=== PATIENT | female | born 1940 | race Caucasian/White ===

== ENCOUNTER 2018-01-30 21:44 | Emergency (ER) | payer MEDICARE ==
[~2018-01-30] VITALS: Ht 162.6 cm; Wt 77.0 kg
[2018-01-30 22:05] VITALS: PULSE 70; RESP 18; TEMP 98.7; O2SAT 99
[2018-01-30 22:11] VITALS: BP 193/91
[2018-01-30] MEDS ORDERED: SODIUM CHLORIDE 0.9% FLUSH 10 ML FLUSH IV FLUSH PRN (22:30)
[2018-01-30] MEDS ORDERED: MORPHINE SULFATE 4 MG/ML INJ IV PUSH ONE (22:30)
[2018-01-30] MEDS ORDERED: ONDANSETRON HCL 4 MG/2 ML VIAL IVP ONE (22:30)
[2018-01-30 22:49] VITALS: O2SAT 97
[2018-01-30] MEDS ORDERED: FURO80TA PO (23:00)
[2018-01-30] MEDS ORDERED: ATEN100T PO (23:00)
[2018-01-30] MEDS ORDERED: DIPH25CA PO (23:00)
[2018-01-30] MEDS ORDERED: VALS1TAB65 PO (23:00)
[2018-01-30] MEDS ORDERED: ATOR40TA16 PO (23:00)
[2018-01-30] MEDS ORDERED: IBUP-1129 PO (23:00)
[2018-01-30] MEDS ORDERED: OMEG100046 (23:00)
[2018-01-30] MEDS ORDERED: CRANCAP2 PO (23:00)
[2018-01-30] MEDS ORDERED: APIX5TAB PO (23:00)
[2018-01-30] MEDS ORDERED: AMLO2.5T PO (23:00)
[2018-01-30] MEDS ORDERED: CALC250T PO (23:00)
[2018-01-30 23:21] LABS: AUTOMATED NEUTROPHIL # 11.9 TH/MM3 (1.8-7.7); BASOPHIL % 0.3 % (0.0-2.0); EOSINOPHIL # 0.1 TH/MM3 (0-0.4); EOSINOPHIL % 0.6 % (0.0-4.0); HEMATOCRIT 41.2 % (35.0-46.0); HEMOGLOBIN 13.9 GM/DL (11.6-15.3); LYMPH % 10.1 % (9.0-44.0); LYMPHOCYTE # 1.4 TH/MM3 (1.0-4.8); MEAN CELL VOLUME 88.8 FL (80.0-100.0); MEAN CORPUSCULAR HEMOGLOBIN 29.9 PG (27.0-34.0); MEAN CORPUSCULAR HGB CONC 33.6 % (32.0-36.0); MEAN PLATELET VOLUME 8.5 FL (7.0-11.0); MONO % 5.2 % (0.0-8.0); MONOCYTE # 0.7 TH/MM3 (0-0.9); NEUT % 83.8 % (16.0-70.0); PLATELET COUNT 232 TH/MM3 (150-450); RED BLOOD COUNT 4.64 MIL/MM3 (4.00-5.30); WHITE BLOOD COUNT 14.2 TH/MM3 (4.0-11.0)
[2018-01-30 23:30] LABS: BACTERIA, URINE MOD /hpf; BILIRUBIN, URINE NEG (NEG); BLOOD, URINE LARGE (NEG); GLUCOSE,URINE NEG (NEG); KETONE, URINE NEG (NEG); MUCUS URINE FEW /lpf (OCC); NITRITE,URINE POS (NEG); PH, URINE 6.5 (5.0-8.5); URINE COLOR YELLOW (YELLW/STRAW); URINE LEUKOCYTE ESTERASE LARGE (NEG); WHITE BLOOD CELL CLUMPS MANY
[2018-01-30 23:50] LABS: BICARBONATE 26.2 MEQ/L (21.0-32.0); CALCIUM 10.5 MG/DL (8.5-10.1); CREATININE 0.74 MG/DL (0.50-1.00)
[2018-01-31] MEDS ORDERED: cefTRIAXone INJ 1,000 MG in SODIUM CHLORIDE 0.9% INJ 100 ML IV ONE ×2
[2018-01-31 00:05] VITALS: BP 168/75; PULSE 69; RESP 16; O2SAT 94
--- NOTE | 2018-01-31 00:13 | PD ---
HPI . Abdominal pain Chief Complaint: Abdominal Pain Time Seen by Provider: 22:13 Travel History International Travel<30 days: No Contact w/Intl Traveler<30days: No Traveled to known affect area: No History of Present Illness HPI Patient presents with the chief complaint of abdominal pain. She reports the onset of right lower quadrant abdominal pain at about 4 PM today. She describes a pressure-like sensation which she rates at 9/10. She has not noted any exacerbating or relieving factors. She denies any other symptoms. She states that she has eaten well today. She has not had any vomiting or diarrhea. She does states that her stools have been soft today. She has not had a fever. PFSH Past Medical History Cancer: Yes (BREAST ) Diminished Hearing: No Hypertension: Yes Medical other: Yes (CYSTITIS) Immunizations Current: Yes Past Surgical History Abdominal Surgery: Yes (LEFT KIDNEY REMOVAL) Section: Yes Cholecystectomy: Yes Coronary Stent: Yes (x3) Gynecologic Surgery: Yes (LEFT BREAST PARTIAL REMOVAL) Hysterectomy: Yes Social History Alcohol Use: Yes Tobacco Use: No Substance Use: No Allergies-Medications (Allergen,Severity, Reaction): Coded Allergies: Sulfa (Sulfonamide Antibiotics) (Verified Allergy, Severe, 01/30/18) Reported Meds & Prescriptions Reported Meds & Active Scripts Active Reported Amlodipine (Amlodipine Besylate) 2.5 Mg Tab 2.5 Mg PO DAILY Motrin Ib (Ibuprofen) 200 Mg Tablet 400 Mg PO Q6 PRN Diphenhydramine (Diphenhydramine HCl) 25 Mg Cap 25 Mg PO HS PRN Cranberry Urinary Comfort (Vitamins C & E) 1 Cap 1 Cap PO DAILY Fish Oil 1,000 mg Softgel (Corinne-3/Dha/Epa/Fish Oil) 1,000 Mg (120 Mg-180 Mg) Capsule 600 Calcium Citrate 250 Mg Calcium Tab 1,000 Mg PO DAILY Atorvastatin (Atorvastatin Calcium) 40 Mg Tab 40 Mg PO HS Eliquis (Apixaban) 5 Mg Tab 5 Mg PO BID Furosemide 80 Mg Tab 80 Mg PO DAILY Atenolol 100 Mg Tab 150 Mg PO DAILY Valsartan 160 Mg Tab 160 Mg PO DAILY Review of Systems Except as stated in HPI: all other systems reviewed are Neg General / Constitutional: No: Fever, Chills Gastrointestinal: Positive: Abdominal Pain, No: Nausea, Vomiting, Diarrhea Genitourinary: No: Urgency, Frequency, Dysuria Physical Exam Narrative GENERAL: Awake and alert. She is noted to walk to the room without any apparent pain. SKIN: warm/dry. HEAD: Normocephalic. Atraumatic. EYES: Pupils equal and round. No scleral icterus. No injection or drainage. ENT: No nasal bleeding or discharge. Mucous membranes pink and moist. NECK: Trachea midline. Full range of motion without pain.. CARDIOVASCULAR: Regular rate and rhythm. Heart sounds normal. RESPIRATORY: No accessory muscle use. Clear to auscultation. Breath sounds equal bilaterally. GASTROINTESTINAL: Abdomen soft. Mild right-sided abdominal tenderness. Bowel sounds present. Nondistended. MUSCULOSKELETAL: No obvious deformities. NEUROLOGICAL: Awake and alert. No obvious cranial nerve deficits. Motor grossly within normal limits. Normal speech. PSYCHIATRIC: Appropriate mood and affect; insight and judgment normal. Data Data Last Documented VS Vital Signs Date Time Temp Pulse Resp B/P (MAP) Pulse Ox O2 Delivery O2 Flow Rate FiO2 01/31/18 00:05 69 16 168/75 (106) 94 Room Air 01/30/18 22:05 98.7 Orders Orders Basic Metabolic Panel (Bmp) (01/30/18 22:16) Complete Blood Count With Diff (01/30/18 22:16) Urinalysis - C+S If Indicated (01/30/18 22:16) Ct Abd/Pel W Iv Contrast(Rout) (01/30/18 22:16) Iv Access Insert/Monitor (01/30/18 22:16) Ecg Monitoring (01/30/18 22:16) Oximetry (01/30/18 22:16) Morphine Inj (Morphine Inj) (01/30/18 22:30) Ondansetron Inj (Zofran Inj) (01/30/18 22:30) Sodium Chloride 0.9% Flush (Ns Flush) (01/30/18 22:30) Urine Culture (01/30/18 22:46) Ceftriaxone Inj (Rocephin Inj) (01/31/18 00:00) Labs Laboratory Tests Test 01/30/18 22:46 White Blood Count 14.2 TH/MM3 Red Blood Count 4.64 MIL/MM3 Hemoglobin 13.9 GM/DL Hematocrit 41.2 % Mean Corpuscular Volume 88.8 FL Mean Corpuscular Hemoglobin 29.9 PG Mean Corpuscular Hemoglobin Concent 33.6 % Red Cell Distribution Width 13.0 % Platelet Count 232 TH/MM3 Mean Platelet Volume 8.5 FL Neutrophils (%) (Auto) 83.8 % Lymphocytes (%) (Auto) 10.1 % Monocytes (%) (Auto) 5.2 % Eosinophils (%) (Auto) 0.6 % Basophils (%) (Auto) 0.3 % Neutrophils # (Auto) 11.9 TH/MM3 Lymphocytes # (Auto) 1.4 TH/MM3 Monocytes # (Auto) 0.7 TH/MM3 Eosinophils # (Auto) 0.1 TH/MM3 Basophils # (Auto) 0.0 TH/MM3 CBC Comment DIFF FINAL Differential Comment Urine Color YELLOW Urine Turbidity CLOUDY Urine pH 6.5 Urine Specific [place] 1.018 Urine Protein 100 mg/dL Urine Glucose (UA) NEG mg/dL Urine Ketones NEG mg/dL Urine Occult Blood LARGE Urine Nitrite POS Urine Bilirubin NEG Urine Urobilinogen LESS THAN 2.0 MG/DL Urine Leukocyte Esterase LARGE Urine RBC 81 /hpf Urine WBC /hpf Urine WBC Clumps MANY Urine Bacteria MOD /hpf Urine Mucus FEW /lpf Microscopic Urinalysis Comment CULTURE INDICATED Blood Urea Nitrogen 17 MG/DL Creatinine 0.74 MG/DL Random Glucose 110 MG/DL Calcium Level 10.5 MG/DL Sodium Level 142 MEQ/L Potassium Level 4.0 MEQ/L Chloride Level 107 MEQ/L Carbon Dioxide Level 26.2 MEQ/L Anion Gap 9 MEQ/L Estimat Glomerular Filtration Rate 76 ML/MIN [facility] Medical Decision Making Medical Screen Exam Complete: Yes Emergency Medical Condition: Yes Differential Diagnosis Differential diagnosis of abdominal pain includes but is not limited to gastritis, pancreatitis, hepatitis, gastroenteritis, constipation, urinary retention, peptic ulcer disease, diverticulitis or appendicitis Narrative Course This patient presents with a chief complaint of right-sided abdominal pain. Onset was about 4:00 this afternoon. She has no other associated symptoms. Her exam is pretty benign. An IV was started and she was given IV pain and nausea medications. Routine blood work and urinalysis were sent. CT of the abdomen and pelvis was ordered. CBC & BMP Diagram 01/30/18 22:46 Calcium Level 10.5 H UA>>large LE, TNTC WBCs, WBC clumps, mod bact. Urine culture is pending. Rocephin has been ordered. Diagnosis Primary Impression: Abdominal pain Qualified Codes: R10.31 - Right lower quadrant pain Additional Impression: Urinary tract infection Qualified Codes: N39.0 - Urinary tract infection, site not specified Patient Instructions: General Instructions, Urinary Tract Infection in Women ( [place]) Disposition: 01 DISCHARGE HOME Condition: Stable Randee Chavez MD Jan 31, 2018 00:13
[2018-01-31] MEDS ORDERED: IOHEXOL 350 MG/ML 10 ML VIAL (for RAD DIAG) IVCONTRAST ONE (00:44)
--- NOTE | 2018-01-31 01:13 | RADRPT ---
EXAM DATE/TIME: 01/31/2018 00:44 [place] COMPARISON: No previous studies available for comparison. INDICATIONS : Right lower qaudrant pain. IV CONTRAST: 95 cc Omnipaque 350 (iohexol) IV ORAL CONTRAST: No oral contrast ingested. RADIATION DOSE: 10.81 CTDIvol (mGy) MEDICAL HISTORY : Hypertension. Carcinoma, breast. SURGICAL HISTORY : Hysterectomy. Cholecystectomy.Nephrectomy, left. ENCOUNTER: Initial ACUITY: 2 days PAIN SCALE: 5/10 LOCATION: Right lower quadrant TECHNIQUE: Volumetric scanning of the abdomen and pelvis was performed. Using automated exposure control and ad justment of the mA and/or kV according to patient size, radiation dose was kept as low as reasonably achievable to obtain optimal diagnostic quality images. DICOM format image data is available electro nically for review and comparison. FINDINGS: LOWER LUNGS: The visualized lower lungs are clear. LIVER: Homogeneous fatty density without lesion. There is no dilation of the biliary tree. No calcified ga llstones. SPLEEN: Normal size without lesion. PANCREAS: Within normal limits. KIDNEYS: Partial nephrectomy changes left upper pole. ADRENAL GLANDS: Within normal limits. VASCULAR: There is atherosclerosis of the abdominal aorta and branch vessels. No aneurysm. BOWEL/MESENTERY: The stomach, small bowel, and colon demonstrate no acute abnormality. There is no free intraperitone al air or fluid. I don't clearly see the appendix but no focal right lower quadrant inflammatory huerta ges are demonstrated. ABDOMINAL WALL: Within normal limits. RETROPERITONEUM: There is no lymphadenopathy. BLADDER: No wall thickening or mass. REPRODUCTIVE: Hysterectomy changes are noted. No free fluid. INGUINAL: There is no lymphadenopathy or hernia. MUSCULOSKELETAL: Within normal limits for patient age. CONCLUSION: 1. No obstruction or acute inflammatory changes are demonstrated. No clearly see the appendix. 2. Mild fatty infiltration of the liver. 3. Hysterectomy and cholecystectomy changes are noted. Partial nephrectomy of the left upper lobe. Yandel German MD on January 31, 2018 at 1:06 Board Certified Radiologist. This report was verified electronically.
[2018-01-31 01:25] VITALS: BP 168/75
[2018-01-31] MEDS ORDERED: CEPH-460 PO (01:41)
== END 2018-01-31 01:42 | disposition home or self-care (01) ==
LOC: NEPE 21:44
DX: R10.31 Right lower quadrant pain (principal); N39.0 Urinary tract infection, site not specified; B96.20 Unspecified Escherichia coli [E. coli] as the cause of diseases classified elsewhere; I10 Essential (primary) hypertension; Z95.5 Presence of coronary angioplasty implant and graft; Z88.2 Allergy status to sulfonamides
CPT/HCPCS: 74177; 80048; 81001; 85025; 87077; 87086; 87186; 96374; 96375; 99285; J0696; J2270; J2405; Q9967